=== PATIENT | female | born 1955 | race Native Hawaiian/Other Pacific Islander ===

== ENCOUNTER 2016-10-03 16:30 | Observation (INO) | payer OTHER ==
[~2016-10-03] VITALS: Ht 157.5 cm; Wt 102.5 kg
[~2016-10-03 16:30] MED LIST: ACET5TAB36 PO; AMBIEN10 MG OR; AMIT25TA22 PO; CELEXA20 MG PO; FLEXERIL10 MG OR; FURO20TA67 PO; GABA300C2 PO; HYDR10TA51 PO; HYDR12.54 PO; HYDR200T3 PO; LORA1TAB17 PO; LORCET HD 10-321 TAB PO; NEURONTIN300 MG OR; PAXIL20 MG PO; ROBAXIN500 MG OR; TOPI100T PO
[2016-10-03 17:07] VITALS: BP 132/54; TEMP 98; Ht 157.5 cm; Wt 102.5 kg
[2016-10-03 17:54] LABS: PLATELET COUNT 228 K/uL (152-353)
[2016-10-03] MEDS ORDERED: LEVE500T5 PO (18:42)
[2016-10-03] MEDS ORDERED: NORCO 10/325***1 TAB PO (18:43)
[2016-10-03] MEDS ORDERED: ONDA4TAB3 PO (18:43)
[2016-10-03] MEDS ORDERED: LORA0.5T17 PO (18:44)
[2016-10-03 18:47] LABS: POTASSIUM 3.2 mmol/L (3.6-5.2)
[2016-10-03 20:00] VITALS: BP 101/55; TEMP 98
[2016-10-04 00:07] VITALS: BP 112/46; TEMP 98.1
[2016-10-04 04:00] VITALS: BP 118/45; TEMP 98
[2016-10-04 07:58] LABS: PLATELET COUNT 240 K/uL (152-353)
[2016-10-04 08:00] VITALS: BP 110/72; TEMP 97.4
[2016-10-04 08:16] LABS: POTASSIUM 3.9 mmol/L (3.6-5.2); SODIUM 137 mmol/L (136-145)
[2016-10-04 11:54] VITALS: BP 117/68; TEMP 97.6
[2016-10-04 15:59] VITALS: BP 124/70; TEMP 97.4
== END 2016-10-04 19:40 | disposition home or self-care (01) ==
LOC: MED/SURG 16:30
PROVIDERS: ADMIT Family Medicine
DX: R53.83 Other fatigue (principal); E11.9 Type 2 diabetes mellitus without complications; F17.290 Nicotine dependence, other tobacco product, uncomplicated; R41.82 Altered mental status, unspecified; R56.9 Unspecified convulsions; M32.8 Other forms of systemic lupus erythematosus
CPT/HCPCS: 36591; 80053; 81000; 82607; 83735; 84443; 85027; 87040; 96365; 96366; 99220; G0378; G0379

== ENCOUNTER 2016-12-12 12:13 | Outpatient (CLI) | payer OTHER ==
[~2016-12-12 12:13] MED LIST changes: +LEVE500T5 PO; +LORA0.5T17 PO; +NORCO 10/325***1 TAB PO; +ONDA4TAB3 PO
[2016-12-12 13:04] LABS: POTASSIUM 3.5 mmol/L (3.6-5.2); SODIUM 137 mmol/L (136-145)
[2016-12-12 13:25] LABS: PLATELET COUNT 233 K/uL (152-353)
== END 2016-12-12 19:23 | disposition home or self-care (01) ==
LOC: LABW 12:13
DX: G47.8 Other sleep disorders (principal); L63.8 Other alopecia areata; L93.0 Discoid lupus erythematosus; L93.1 Subacute cutaneous lupus erythematosus; M06.4 Inflammatory polyarthropathy
CPT/HCPCS: 36415; 80053; 85027; 85651; 86140

== ENCOUNTER 2017-01-20 16:57 | Outpatient (CLI) | payer OTHER | END 2017-01-20 18:00 | disposition home or self-care (01) | LOC: CT 16:57 | DX: R10.32 Left lower quadrant pain (principal) | CPT/HCPCS: 36415; 82565; 84520; Q9963 ==

== ENCOUNTER 2017-11-14 09:24 | Outpatient (CLI) | payer OTHER ==
[2017-11-14 10:00] LABS: PLATELET COUNT 220 K/uL (152-353)
[2017-11-14 10:30] LABS: POTASSIUM 3.9 mmol/L (3.6-5.2)
== END 2017-11-14 19:59 | disposition home or self-care (01) ==
LOC: LABW 09:24
PROVIDERS: Nurse Practitioner Adult Health
DX: I63.8 Other cerebral infarction (principal); R47.89 Other speech disturbances; R41.3 Other amnesia; G40.219 Localization-related (focal) (partial) symptomatic epilepsy and epileptic syndromes with complex partial seizures, intractable, without status epilepticus; R51 Headache
CPT/HCPCS: 36415; 80053; 80061; 82607; 82746; 84439; 84443; 85027

== ENCOUNTER 2017-12-28 10:25 | Outpatient (CLI) | payer OTHER ==
[2017-12-28 10:56] LABS: PLATELET COUNT 226 K/uL (152-353)
== END 2017-12-28 20:07 | disposition home or self-care (01) ==
LOC: LABW 10:25
PROVIDERS: Internal Medicine Rheumatology
DX: M32.8 Other forms of systemic lupus erythematosus (principal); Z79.899 Other long term (current) drug therapy; Z51.81 Encounter for therapeutic drug level monitoring; G25.81 Restless legs syndrome
CPT/HCPCS: 36415; 80053; 81000; 82542; 85027; 85651; 86140; 86160; 86225

== ENCOUNTER 2018-03-20 13:42 | Outpatient (CLI) | payer OTHER | END 2018-03-20 22:07 | disposition home or self-care (01) | LOC: RAD 13:42 | DX: M54.17 Radiculopathy, lumbosacral region (principal) ==

== ENCOUNTER 2018-03-21 10:45 | Outpatient (CLI) | payer OTHER | END 2018-03-21 19:29 | disposition home or self-care (01) | LOC: MAMMO 10:45 | DX: Z12.31 Encounter for screening mammogram for malignant neoplasm of breast (principal) ==

== ENCOUNTER 2018-09-11 15:23 | Outpatient (CLI) | payer OTHER | END 2018-09-11 19:23 | disposition home or self-care (01) | LOC: RAD 15:23 | DX: R10.9 Unspecified abdominal pain (principal) ==

== ENCOUNTER 2018-11-15 16:16 | Outpatient (CLI) | payer OTHER ==
[2018-11-15 16:51] LABS: POTASSIUM 3.6 mmol/L (3.6-5.2); SODIUM 140 mmol/L (136-145)
== END 2018-11-15 20:38 | disposition home or self-care (01) ==
LOC: LABW 16:16
PROVIDERS: Nurse Practitioner Family
DX: R07.89 Other chest pain (principal); R06.02 Shortness of breath
CPT/HCPCS: 36415; 80053; 82550; 83880; 84484

== ENCOUNTER 2018-12-25 10:32 | Outpatient (CLI) | payer OTHER | END 2018-12-25 20:30 | disposition home or self-care (01) | LOC: RAD 10:32 | DX: J40 Bronchitis, not specified as acute or chronic (principal) ==

== ENCOUNTER 2019-12-03 08:01 | Outpatient (CLI) | payer OTHER | END 2019-12-03 19:04 | disposition home or self-care (01) | LOC: CT 08:01 | DX: I73.89 Other specified peripheral vascular diseases (principal) | CPT/HCPCS: 36415; 82565; 84520 ==

== ENCOUNTER 2022-12-27 12:54 | Outpatient (CLI) | payer OTHER | END 2022-12-27 21:58 | LOC: CT 12:54 | PROVIDERS: ATTEND Physician Assistant | DX: M25.552 Pain in left hip (principal); M54.17 Radiculopathy, lumbosacral region ==

== ENCOUNTER 2023-03-13 19:58 | Emergency (ER) | payer OTHER ==
[~2023-03-13] VITALS: Ht 152.4 cm; Wt 99.8 kg
[2023-03-13 19:59] VITALS: TEMP 98
[2023-03-13 21:10] LABS: PLATELET COUNT 221 K/uL (152-353)
[2023-03-13 21:15] LABS: PARTIAL THROMBOPLASTIN TIME 26.6 SECONDS (23.9-36.7)
[2023-03-14 00:58] VITALS: BP 175/73
== END 2023-03-14 01:03 | disposition home or self-care (01) ==
LOC: ED 19:58
PROVIDERS: Family Medicine
DX: R06.00 Dyspnea, unspecified (principal); R05.9 Cough, unspecified
CPT/HCPCS: 36415; 80053; 84484; 85027; 85610; 85730; 93005; 94664; 99283

== ENCOUNTER 2023-03-16 05:09 | Observation (INO) | payer OTHER ==
[2023-03-16] VITALS (7 sets, daily range): BP systolic 127–183; BP diastolic 59–82; TEMP 97.5–98.4; Ht 152.4 cm; Wt 104.3 kg
[~2023-03-16] VITALS: Ht 152.4 cm; Wt 104.3 kg
[2023-03-16 05:59] LABS: PLATELET COUNT 225 K/uL (152-353)
[2023-03-16 06:31] LABS: POTASSIUM 3.5 mmol/L (3.6-5.2)
[2023-03-16] MEDS ORDERED: AMLO2.5T PO (10:25)
[2023-03-16] MEDS ORDERED: GABAPENTIN PO (10:27)
[2023-03-16] MEDS ORDERED: METHOCARBAMOL PO (10:27)
[2023-03-16] MEDS ORDERED: LORA1TAB17 PO (10:28)
[2023-03-16] MEDS ORDERED: CLONIDINE HYDR0.2 MG PO (10:29)
[2023-03-16] MEDS ORDERED: STIOLTO RESPIMA1 AER INH (10:30)
[2023-03-16] MEDS ORDERED: ALBUTEROL0.083 % INH (10:33)
[2023-03-16] MEDS ORDERED: ALBU90AE13 INH (10:33)
[2023-03-16] MEDS ORDERED: FURO20TA67 PO (10:34)
[2023-03-16] MEDS ORDERED: CLOP75TA2 PO (11:58)
[2023-03-16] MEDS ORDERED: LOSA50TA PO (12:04)
== END 2023-03-16 17:00 | disposition left against medical advice (07) ==
LOC: ED 05:09 → MED/SURG 07:11
PROVIDERS: Family Medicine; ADMIT Nurse Practitioner Family; ATTEND Internal Medicine Endocrinology, Diabetes & Metabolism
DX: R07.89 Other chest pain (principal); Z53.29 Procedure and treatment not carried out because of patient's decision for other reasons; I25.10 Atherosclerotic heart disease of native coronary artery without angina pectoris; G89.4 Chronic pain syndrome; F41.8 Other specified anxiety disorders; L93.2 Other local lupus erythematosus; N18.9 Chronic kidney disease, unspecified; G62.9 Polyneuropathy, unspecified; I12.9 Hypertensive chronic kidney disease with stage 1 through stage 4 chronic kidney disease, or unspecified chronic kidney disease
CPT/HCPCS: 80053; 84484; 85027; 93005; 96372; 99221; 99284; G0378; J1650

== ENCOUNTER 2023-03-24 12:58 | Outpatient (CLI) | payer OTHER ==
[~2023-03-24 12:58] MED LIST changes: +ALBU90AE13 INH; +ALBUTEROL0.083 % INH; +AMLO2.5T PO; +CLONIDINE HYDR0.2 MG PO; +CLOP75TA2 PO; +GABAPENTIN PO; +LOSA50TA PO; +METHOCARBAMOL PO; +STIOLTO RESPIMA1 AER INH
== END 2023-03-24 19:02 | disposition home or self-care (01) ==
LOC: CT 12:58
PROVIDERS: ATTEND Nurse Practitioner Family
DX: R59.0 Localized enlarged lymph nodes (principal); J44.9 Chronic obstructive pulmonary disease, unspecified

== ENCOUNTER 2023-04-07 13:00 | Outpatient (CLI) | payer OTHER ==
[2023-04-07 13:50] LABS: PLATELET COUNT 236 K/uL (152-353)
[2023-04-07 14:03] LABS: POTASSIUM 3.9 mmol/L (3.6-5.2)
== END 2023-04-07 19:10 | disposition home or self-care (01) ==
LOC: US 13:00
PROVIDERS: ATTEND Internal Medicine
DX: I12.9 Hypertensive chronic kidney disease with stage 1 through stage 4 chronic kidney disease, or unspecified chronic kidney disease (principal); N18.31 Chronic kidney disease, stage 3a
CPT/HCPCS: 36415; 80048; 81000; 82040; 82570; 83883; 84100; 84156; 84550; 85027; 86038; 86225